=== PATIENT | male | born 1960 | race Caucasian/White ===

== ENCOUNTER → 2018-04-20 | Day surgery (SDC) | payer BC ==
[~2018-04-20] MED LIST: AMLODIPINE BESY10 MG PO; FENTANYL CITRATE/PF 100MCG/2 ML INJ ONE; GEMFIBROZIL600 MG PO; GLIMEPIRIDE2 MG PO; HYOSCYAMINE SULFATE 0.5 MG/ML INJ ONE; KETAMINE HCL INJ 50 MG/ML 10 ML VIAL ONE; MIDAZOLAM HCL 2 MG/2 ML VIAL ONE; PIOGLITAZONE30 MG PO; PROPOFOL IV EMULSION 10 MG/ML 50 ML VIAL ONE; SERTRALINE HCL25 MG PO
--- OUTSIDE RECORDS SUMMARY | 2018-04-20 06:20 | XMS REPORT ---
Author [facility] Address Unknown Phone Unavailable Care Team Providers Care Rn Anesthetist Name Role Phone Unavailable Unavailable Payers Payer Name Policy Type Policy Number Effective Date Expiration Date Problems This patient has no known problems. Allergies, Adverse Reactions, Alerts This patient has no known allergies or adverse reactions. Medications This patient has no known medications. Results Test Description Test Time Test Comments Text Results Atomic Results Result Comments - XR CHEST 2 V 2018-04-14 11:31:00 FAX: Erik Khanna MD [phone] [place]: O St: PRE Name: CALVILLOHUE CASTILLO [facility] : 1960 Age/S: 57/M [address] [facility] Unit #: [id number] Loc: [place] [address] Phys: Erik Skaggs MD Acct: [id number] Dis Date: Status: PRE CLI PHONE #: [phone] Exam Date: 04/14/2018 1153 FAX #: [phone] Reason: I10 EXAMS: CPT CODE: [id number] XR CHEST 2 V 86391 HISTORY: I10. COMPARISON: None available. AP and lateral view of the chest: No acute infiltrates, effusion or congestion. Cardiac and the mediastinal silhouette are normal. IMPRESSION: No acute infiltrates, effusion or congestion. at 1131 Reported and signed by: Thai Merritt M.D. CC: Erik Skaggs Technologist: TOMMY Trivedi) Trnhero Date/Time/By: 04/14/2018 (1131) : By: [email or web address] Orig Print D/T: S: 04/14/2018 (5923) PAGE 1 Signed Report - XR CHEST 2 V 2018-04-14 11:31:00 FAX: Erik Khanna MD [phone] [place]: O St: PRE Name: HUE CALVILLO [facility] : 1960 Age/S: 57/M [address] [facility] Unit #: [id number] Loc: [place] [address] Phys: Erik Skaggs MD Acct: [id number] Dis Date: Status: PRE CLI PHONE #: [phone] Exam Date: 04/14/2018 1153 FAX #: [phone] Reason: I10 EXAMS: CPT CODE: [id number] XR CHEST 2 V 78779 HISTORY: I10. COMPARISON: None available. AP and lateral view of the chest: No acute infiltrates, effusion or congestion. Cardiac and the mediastinal silhouette are normal. IMPRESSION: No acute infiltrates, effusion or congestion. at 1131 Reported and signed by: Thai Merritt M.D. CC: Erik Skaggs Technologist: TOMMY Trivedi) Trnscron Date/Time/By: 04/14/2018 (1131) : By: [email or web address] Orig Print D/T: S: 04/14/2018 (3176) PAGE 1 Signed Report
[2018-04-20 11:16] VITALS: BP 128/88
== END | disposition home or self-care (01) ==
LOC: OR 06:00
PROVIDERS: ATTEND Internal Medicine Gastroenterology
DX: Z12.11 Encounter for screening for malignant neoplasm of colon (principal); Z85.038 Personal history of other malignant neoplasm of large intestine; D12.0 Benign neoplasm of cecum; D12.2 Benign neoplasm of ascending colon; D12.3 Benign neoplasm of transverse colon; K64.8 Other hemorrhoids; Z90.49 Acquired absence of other specified parts of digestive tract; Z98.0 Intestinal bypass and anastomosis status; I10 Essential (primary) hypertension; E78.5 Hyperlipidemia, unspecified; E11.9 Type 2 diabetes mellitus without complications; R06.83 Snoring; Z01.810 Encounter for preprocedural cardiovascular examination; Z79.84 Long term (current) use of oral hypoglycemic drugs; Z68.35 Body mass index [BMI] 35.0-35.9, adult
CPT/HCPCS: 36415; 45380; 45384; 45385; 82948; 93005; J1980; J2250; J2704; 45378